=== PATIENT | male | born 1955 | race African-American/Black ===

== ENCOUNTER 2022-12-16 17:10 | Inpatient (IN) | payer OTHER ==
[2022-12-16] MEDS ORDERED: hydrOXYzine PAMOATE 25 MG CAPSULE (FP) PO PRN (19:00)
[2022-12-16] MEDS ORDERED: NALOXONE HCL (KLOXXADO) 8 MG SPRAY NS PRN (19:00)
[2022-12-16] MEDS ORDERED: BISMUTH SUBSALICYLATE 524 MG/30 ML PO PRN (19:00)
[2022-12-16] MEDS ORDERED: diazePAM 5 MG TABLET PO PRN (19:00)
[2022-12-16] MEDS ORDERED: guaiFENesin 600 MG TABLET.ER (FP) PO PRN (19:00)
[2022-12-16] MEDS ORDERED: MAGNESIUM HYDROX 2400MG/30ML ORAL SUSPENSION 30 ML CUP PO PRN (19:00)
[2022-12-16] MEDS ORDERED: METHOCARBAMOL 500 MG TABLET PO PRN (19:00)
[2022-12-16] MEDS ORDERED: NALOXONE HCL 0.4 MG/ML VIAL IM PRN (19:00)
[2022-12-16] MEDS ORDERED: DICYCLOMINE HCL 10 MG CAPSULE PO PRN (19:00)
[2022-12-16] MEDS ORDERED: ACETAMINOPHEN 325 MG TABLET (FP) PO PRN (19:00)
[2022-12-16] MEDS ORDERED: IBUPROFEN 600 MG TABLET (FP) PO PRN (19:00)
[2022-12-16] MEDS ORDERED: POLYETHYLENE GLYCOL (HEALTHYLAX) 3350 17 GM PACKET PO PRN (19:00)
[2022-12-16] MEDS ORDERED: NICOTINE 10 MG CARTRIDGE (INHALER) IH PRN (19:00)
[2022-12-16] MEDS ORDERED: LOPERAMIDE HCL 2 MG CAPSULE PO PRN (19:00)
[2022-12-16] MEDS ORDERED: BENZOCAINE/MENTHOL (CHLORASEPTIC ) LOZENGE MM PRN (19:00)
[2022-12-16] MEDS ORDERED: IBUPROFEN 400 MG TABLET (FP) PO PRN (19:00)
[2022-12-16] MEDS ORDERED: ONDANSETRON *ODT* 4 MG TABLET SL PRN (19:00)
[2022-12-16] MEDS ORDERED: BENZONATATE 200 MG CAPSULE PO PRN (19:00)
[2022-12-16] MEDS ORDERED: cloNIDine HCL 0.1 MG TABLET PO ONE (19:07)
[2022-12-16] MEDS ORDERED: diazePAM 5 MG TABLET ONE (19:10)
[2022-12-16] MEDS ORDERED: cloNIDine HCL 0.1 MG TABLET ONE (19:11)
[2022-12-16 19:15] VITALS: BMI 18.0
[2022-12-16] MEDS ORDERED: ALBUTEROL SO4 HFA INHALER IH PRN (20:09)
[2022-12-16] MEDS: ASPIRIN 81 MG CHEWABLE TABLETS PO SCH (20:43)
[2022-12-16] MEDS: MAG HYDROX/AL HYDROX/SIMETH 30 ML UNIT-DOSE CUP PO PRN (21:55)
[2022-12-16] MEDS: LOSARTAN 50MG/HCTZ 12.5MG 1 TAB PO SCH (22:27)
[2022-12-16] MEDS: MELATONIN 5 MG TABLETS PO SCH (22:27)
[2022-12-16] MEDS: NIFEdipine E.R 60 MG TABLET PO SCH (22:27)
[2022-12-16] MEDS: THIAMINE HCL 100 MG TABLET (FP) PO SCH (22:27)
[2022-12-16] MEDS: diazePAM 5 MG TABLET PO SCH (22:49)
[2022-12-17] MEDS: diazePAM 5 MG TABLET PO SCH ×4 (05:08→22:28)
[2022-12-17] MEDS: LOSARTAN 50MG/HCTZ 12.5MG 1 TAB PO SCH (10:38)
[2022-12-17] MEDS: ASPIRIN 81 MG CHEWABLE TABLETS PO SCH (10:38)
[2022-12-17] MEDS: NIFEdipine E.R 60 MG TABLET PO SCH (10:38)
[2022-12-17] MEDS: PRENATAL VITAMINS W/ FOLIC ACID TABLET (FP) PO SCH (10:38)
[2022-12-17] MEDS: MAG HYDROX/AL HYDROX/SIMETH 30 ML UNIT-DOSE CUP PO PRN (16:37)
[2022-12-17] MEDS: THIAMINE HCL 100 MG TABLET (FP) PO SCH (22:27)
[2022-12-17] MEDS: MELATONIN 5 MG TABLETS PO SCH (22:29)
[2022-12-18] MEDS: diazePAM 5 MG TABLET PO SCH ×3 (05:44→22:01)
[2022-12-18] MEDS: MAG HYDROX/AL HYDROX/SIMETH 30 ML UNIT-DOSE CUP PO PRN (05:45)
[2022-12-18] MEDS: LOSARTAN 50MG/HCTZ 12.5MG 1 TAB PO SCH (09:14)
[2022-12-18] MEDS: ASPIRIN 81 MG CHEWABLE TABLETS PO SCH (09:14)
[2022-12-18] MEDS: PRENATAL VITAMINS W/ FOLIC ACID TABLET (FP) PO SCH (09:14)
[2022-12-18] MEDS: NIFEdipine E.R 60 MG TABLET PO SCH (09:14)
[2022-12-18] MEDS: hydrALAZINE HCL 25 MG TABLET (FP) PO SCH ×2 (10:32→21:57)
[2022-12-18] MEDS: FAMOTIDINE 20 MG TABLET PO SCH ×2 (14:46→21:57)
[2022-12-18] MEDS: THIAMINE HCL 100 MG TABLET (FP) PO SCH (21:57)
[2022-12-18] MEDS: MELATONIN 5 MG TABLETS PO SCH (21:57)
[2022-12-19] MEDS: diazePAM 5 MG TABLET PO SCH ×2 (06:05→17:45)
[2022-12-19] MEDS: PRENATAL VITAMINS W/ FOLIC ACID TABLET (FP) PO SCH (09:13)
[2022-12-19] MEDS: hydrALAZINE HCL 25 MG TABLET (FP) PO SCH ×2 (09:13→22:02)
[2022-12-19] MEDS: LOSARTAN 50MG/HCTZ 12.5MG 1 TAB PO SCH (09:13)
[2022-12-19] MEDS: FAMOTIDINE 20 MG TABLET PO SCH ×2 (09:15→22:02)
[2022-12-19] MEDS: NIFEdipine E.R 60 MG TABLET PO SCH (09:15)
[2022-12-19] MEDS: ASPIRIN 81 MG CHEWABLE TABLETS PO SCH (09:15)
[2022-12-19] MEDS ORDERED: METOPROLOL TARTRATE 25 MG TABLET (FP) PO ONE (18:49)
[2022-12-19] MEDS: MAG HYDROX/AL HYDROX/SIMETH 30 ML UNIT-DOSE CUP PO PRN (19:21)
[2022-12-19] MEDS: TAMSULOSIN HCL 0.4 MG CAP PO SCH (22:01)
[2022-12-19] MEDS: THIAMINE HCL 100 MG TABLET (FP) PO SCH (22:01)
[2022-12-19] MEDS: MELATONIN 5 MG TABLETS PO SCH (22:02)
[2022-12-19] MEDS ORDERED: LISINOPRIL 10 MG TABLET PO ONE (23:34)
[2022-12-20] MEDS ORDERED: diazePAM 5 MG TABLET PO ONE (06:00)
[2022-12-20] MEDS: TAMSULOSIN HCL 0.4 MG CAP PO SCH (07:34)
[2022-12-20 09:16] VITALS: BP 136/86; RESP 18; TEMP 97.3
[2022-12-20] MEDS: FAMOTIDINE 20 MG TABLET PO SCH (09:56)
[2022-12-20] MEDS: LOSARTAN 50MG/HCTZ 12.5MG 1 TAB PO SCH (09:56)
[2022-12-20] MEDS: hydrALAZINE HCL 25 MG TABLET (FP) PO SCH (09:56)
[2022-12-20] MEDS: NIFEdipine E.R 60 MG TABLET PO SCH (09:56)
[2022-12-20] MEDS: PRENATAL VITAMINS W/ FOLIC ACID TABLET (FP) PO SCH (09:57)
[2022-12-20] MEDS: ASPIRIN 81 MG CHEWABLE TABLETS PO SCH (09:57)
[2022-12-20 10:29] VITALS: PULSE 101
== END 2022-12-20 10:04 | disposition home or self-care (01) | DRG 774 ==
LOC: YASAS 17:10 → Y6N 19:48
PROVIDERS: ADMIT Allergy & Immunology; ATTEND Psychiatry & Neurology Pain Medicine
PROC: HZ2ZZZZ Detoxification Services for Substance Abuse Treatment (ICD-10-PCS; principal; 2022-12-16)
DX: F10.230 Alcohol dependence with withdrawal, uncomplicated (principal); F14.20 Cocaine dependence, uncomplicated; F17.210 Nicotine dependence, cigarettes, uncomplicated; I10 Essential (primary) hypertension; J45.909 Unspecified asthma, uncomplicated; K21.9 Gastro-esophageal reflux disease without esophagitis; R00.0 Tachycardia, unspecified
CPT/HCPCS: 87811; 93005; 93010; C9803-CS; U0003; U0005

== ENCOUNTER 2022-12-17 04:22 | Emergency (ER) | payer OTHER ==
[2022-12-17 04:29] VITALS: BMI 18.0
[2022-12-17] MEDS ORDERED: SODIUM CHLORIDE 0.9% 500 ML INFUS.BAG IV ONE ×2 (05:51→07:29)
[2022-12-17 06:41] LABS: BASO % 1.4 % (0-2.0); EOS % 0.7 % (0-4.5); HEMATOCRIT 29.2 % (35.4-49); HEMOGLOBIN 9.7 GM/dL (11.7-16.9); LYMPH % 11.7 % (8-40); MCH 25.3 pg (25.7-33.7); MCHC 33.3 g/dl (32.0-35.9); MEAN PLT VOLUME 7.5 fl (7.5-11.1); MONO % 12.4 % (3.8-10.2); NEUT % 73.8 % (42.8-82.8); PLATELET COUNT 625 10^3/uL (134-434); RBC 3.84 M/mm3 (4.00-5.60); WHITE BLOOD COUNT 9.6 K/mm3 (4.0-10.0)
[2022-12-17 07:00] LABS: CHLORIDE 104 mmol/L (98-107); SODIUM 143 mmol/L (136-145)
[2022-12-17 07:02] LABS: ALBUMIN 2.4 g/dl (3.4-5.0); ANION GAP 5 MMOL/L (8-16); BLOOD UREA NITROGEN 16.9 mg/dL (7-18); CALCIUM 9.1 mg/dL (8.5-10.1); CO2 34 mmol/L (21-32); GLUCOSE,RANDOM 97 mg/dL (74-106)
[2022-12-17 07:05] LABS: SGPT/ALT 16 U/L (13-61)
[2022-12-17 07:06] LABS: CREATININE 1.1 mg/dL (0.55-1.3); SGOT/AST 20 U/L (15-37)
[2022-12-17 07:07] LABS: BILIRUBIN,TOTAL 0.1 mg/dL (0.2-1); TOT PROT 6.5 g/dl (6.4-8.2)
[2022-12-17 07:08] LABS: ALK PHOS 105 U/L (45-117)
[2022-12-17] MEDS ORDERED: LORazepam 2 MG/ML SDV VIAL IVPUSH ONE ×2 (07:10→07:28)
[2022-12-17] MEDS ORDERED: chlordiazePOXIDE HCL 25 MG CAPSULE PO ONE (08:07)
[2022-12-17 08:31] LABS: MAGNESIUM 0.7 mg/dL (1.8-2.4)
[2022-12-17] MEDS ORDERED: chlordiazePOXIDE HCL 25 MG CAPSULE ONE (08:34)
[2022-12-17] MEDS ORDERED: MAGNESIUM SULF 50% (8.12 MEQ/2 ML-1 GM VIAL) IVPB ONE ×2 (08:35→08:41)
[2022-12-17] MEDS ORDERED: THIAMINE HCL 200 MG/2 ML VIAL IVPB ONE (08:37)
[2022-12-17] MEDS ORDERED: FOLIC ACID 1 MG TABLET (FP) PO ONE (08:37)
[2022-12-17] MEDS ORDERED: THIAMINE HCL 200 MG/2 ML VIAL ONE (08:40)
[2022-12-17] MEDS ORDERED: MAGNESIUM SULFATE IN WATER 2 GM/50 ML IVPB IVPB ONE ×2 (08:41→09:01)
[2022-12-17] MEDS ORDERED: FOLIC ACID 1 MG TABLET (FP) ONE (08:41)
[2022-12-17 11:22] VITALS: BP 142/80; PULSE 101; RESP 16; TEMP 97
[2022-12-17 11:37] LABS: ANISOCYTOSIS 3+; MACROCYTOSIS 0; TARGET CELLS 1+
== END 2022-12-17 13:02 | disposition home or self-care (01) ==
LOC: JER 04:22
PROC: 3E0333Z Introduction of Anti-inflammatory into Peripheral Vein, Percutaneous Approach (ICD-10-PCS; principal; 2022-12-17)
PROC: 3E033GC Introduction of Other Therapeutic Substance into Peripheral Vein, Percutaneous Approach (ICD-10-PCS; 2022-12-17)
PROC: 3E033GC Introduction of Other Therapeutic Substance into Peripheral Vein, Percutaneous Approach (ICD-10-PCS; 2022-12-17)
DX: R00.0 Tachycardia, unspecified (principal); T46.1X5A Adverse effect of calcium-channel blockers, initial encounter; E83.42 Hypomagnesemia
CPT/HCPCS: 36415; 80053; 83735; 84443; 85025; 93005; 93010; 99284-25